=== PATIENT | female | born 1930 | race Caucasian/White ===

== ENCOUNTER → 2016-09-26 | Outpatient (CLI) | payer OTHER, MEDICARE ==
--- NOTE | 2016-09-26 16:56 | DX ---
AP Supine Pelvis and Frog Lateral View of the Left Hip, Two Views Total 12:55 p.m. Clinical History: 86-year-old female complaining of left hip pain, and a history of multiple falls in the last month. Rule out fracture. ICD-10 Diagnostic Code: M25.552. Comparison Studies: Bilateral hips, dated May 24, 2013. This is also correlated with a dictated report of an MRI of the pelvis dated June 09, 2013, which had demonstrated bilateral sacral ins ufficiency fractures, left greater than right, and a questionable abnormality involving the bone maria r ow of the right femoral diaphysis. Findings: The bones are demineralized. There are some surgical clips in the medial right lower quadra nt of the abdomen, as well as some anastomotic clips seen in both the right and left lower quadrants of the abdomen. 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 Bowel gas obscures portions of the pelvic osseous anatomy. There is no sacral fra cture appreciated. There are degenerative features of the visualized lower lumbar spine. Each femoral head is well-seated within its respective acetabulum, with some acetabular periarticular spurring. T here is also some osseous hypertrophy associated with the greater trochanters. The ischial pubic rami are intact. Numerous phleboliths are seen throughout the caudal pelvis. Impression: Senescent features of the pelvis and hips, with no acute osseous abnormality identified. If there is further clinical concern regarding the patient's left hip pain, consider MR imaging, if o therwise not contraindicated.
== END ==
LOC: FIMAGING 12:39
PROVIDERS: ATTEND Physician Assistant
DX: M25.552 Pain in left hip (principal); Z91.81 History of falling

== ENCOUNTER → 2017-10-12 | Outpatient (CLI) | payer OTHER, MEDICARE | LOC: FIMAGING 13:34 | DX: M48.061 Spinal stenosis, lumbar region without neurogenic claudication (principal); M51.26 Other intervertebral disc displacement, lumbar region; M46.96 Unspecified inflammatory spondylopathy, lumbar region ==